=== PATIENT | female | born 1980 ===

== ENCOUNTER 2020-01-02 19:01 | Emergency (ER) | payer SELFPAY ==
[~2020-01-02] VITALS: Ht 175.3 cm; Wt 90.9 kg
[2020-01-02 19:08] VITALS: BP 136/67; PULSE 85; TEMP 98.7
== END 2020-01-02 20:27 | disposition left against medical advice (07) ==
LOC: COL.ER 19:01
DX: R05 Cough (principal); R09.81 Nasal congestion